=== PATIENT | male | born 1990 | race Caucasian/White ===

== ENCOUNTER → 2019-07-26 | Outpatient (CLI) | payer OTHER ==
--- NOTE | 2019-07-26 10:21 | Diagnostic Imaging Report ---
INDICATION: Cough and congestion. PA and lateral views of the chest were obtained. FINDINGS: The heart size, mediastinal configuration, and pulmonary vascularity are within normal limits. There is no pleural effusion, pneumothorax, or pneumonia. The osseous structures are unremarkable. IMPRESSION: No acute cardiopulmonary abnormality. Dictated by: Dictated on workstation # [id number]
[2019-07-27 05:21] LABS: ALTERNARIA MOLD RAST <0.35 kU/L (<0.35); RAGWEED RAST <0.35 kU/L (<0.35)
== END ==
LOC: RAD 09:44
PROVIDERS: ATTEND Internal Medicine Critical Care Medicine
DX: J30.2 Other seasonal allergic rhinitis (principal); R05 Cough
CPT/HCPCS: 36415; 71046; 86003

== ENCOUNTER 2019-07-29 08:15 | Outpatient (CLI) | payer OTHER ==
[~2019-07-29] VITALS: Ht 188 cm; Wt 40.0 kg
[2019-07-29] MEDS ORDERED: MONT10TA24 PO (09:13)
[2019-07-29] MEDS ORDERED: OMEP20TA7 PO (09:13)
[2019-07-29] MEDS ORDERED: CETI10TA17 PO (09:13)
== END 2019-07-29 09:14 | disposition home or self-care (01) ==
LOC: PREOP 08:15
PROVIDERS: ATTEND Internal Medicine Critical Care Medicine
DX: Z01.818 Encounter for other preprocedural examination (principal)

== ENCOUNTER → 2019-08-01 | Outpatient (CLI) | payer OTHER ==
[~2019-08-01] MED LIST: CETI10TA17 PO; MONT10TA24 PO; OMEP20TA7 PO; RT-ALBUTEROL SULF 2.5 MG/3 ML PRE-MIX VIAL INH ONE; RT-ALBUTEROL SULF 2.5 MG/3 ML PRE-MIX VIAL ONE
== END ==
LOC: RT 10:30
PROVIDERS: ATTEND Internal Medicine Critical Care Medicine
DX: J30.2 Other seasonal allergic rhinitis (principal)
CPT/HCPCS: 94060; 94726; 94729

== ENCOUNTER 2019-08-18 09:11 | Outpatient (CLI) | payer OTHER ==
[~2019-08-18] VITALS: Ht 188 cm; Wt 83.2 kg
[~2019-08-18 09:11] MED LIST changes: -MONT10TA24 PO; +MONT10TA26 PO; -RT-ALBUTEROL SULF 2.5 MG/3 ML PRE-MIX VIAL INH ONE; -RT-ALBUTEROL SULF 2.5 MG/3 ML PRE-MIX VIAL ONE
== END 2019-08-18 13:56 | disposition home or self-care (01) ==
LOC: PREOP 09:11
PROVIDERS: ATTEND Surgery
DX: Z01.818 Encounter for other preprocedural examination (principal)

== ENCOUNTER → 2019-08-24 | Outpatient (CLI) | payer OTHER ==
[~2019-08-24] MED LIST changes: +CATHETER FLUSH 10 ML SYR IV PRN; +HOLD METFORMIN - RECEIVED CONTRAST 20 ML VIAL IV SCH; +IOHEXOL 350 MG/ML 100 ML (OMNIPAQUE 350) VIAL IV ONE; +NS 100 ML (IVPB) BAG IV ONE
[2019-08-24 15:56] LABS: BUN/CREATININE RATIO 15; CREATININE SERUM 1.06 MG/DL (0.60-1.30); GFR ESTIMATED > 60
--- NOTE | 2019-08-27 05:47 | Diagnostic Imaging Report ---
PROCEDURE: CT chest with contrast only. TECHNIQUE: Multiple contiguous axial images were obtained through the chest after administration of intravenous contrast. Auto Exposure Controls were utilized during the CT exam to meet ALARA standards for radiation dose reduction. INDICATION: Cough, hemoptysis There are no prior CT chest examinations available for comparison. The plain film examination of the chest performed on 08/04/2019 was unremarkable for an acute abnormality. On this exam, the pulmonary arteries are not well opacified and consequently difficult to assess for pulmonary embolus. There is no definite defect to suggest a pulmonary embolus. The aorta is not abnormally dilated and there is no evidence for dissection. The lungs are generally clear. There is no sign of failure, pneumonia or a pleural effusion to suggest an acute abnormality. There is no mediastinal or hilar adenopathy. The thyroid gland is generally unremarkable. The sections through the upper abdomen failed to show any sign of an acute abnormality. The bone windows are unremarkable for a fracture or for a destructive lesion. IMPRESSION: 1. There is no evidence for an acute cardiopulmonary abnormality. 2. The pulmonary arteries were not well opacified and consequently difficult to assess for pulmonary embolus. However, there is no definite defect to suggest a pulmonary embolus. The aorta is unremarkable. Dictated by: Dictated on workstation # [id number]
== END ==
LOC: RAD 15:03
PROVIDERS: ATTEND Nurse Practitioner Family
DX: J45.909 Unspecified asthma, uncomplicated (principal); R13.10 Dysphagia, unspecified; R04.2 Hemoptysis
CPT/HCPCS: 36415; 71260; 82565; 84520